=== PATIENT | male | born 1940 | race Caucasian/White ===

== ENCOUNTER 2024-12-09 06:56 | Day surgery (SDC) | payer MEDICARE ==
[2024-12-09] MEDS: IV FLUID CONTINUATION 1,000 ML IV ONE (07:39)
[2024-12-09 07:42] VITALS: RESP 18; TEMP 97.8
[2024-12-09] MEDS: LACTATED RINGERS 1,000 ML BAG IV STA (07:52)
[2024-12-09] MEDS ORDERED: PROPOFOL 10 MG/ML 20 ML VIAL IV ONE (08:01)
[2024-12-09 08:43] VITALS: BP 117/70; PULSE 83
[2024-12-09 08:46] LABS: Basophils # (A) 0.07 10*3/uL (0.00-0.10); Basophils % (A) 0.9 %; Eosinophils # (A) 0.23 10*3/uL (0.04-0.35); Eosinophils % (A) 3.0 %; HCT 26.4 % (39.6-50.0); HGB 8.8 g/dL (13.0-17.0); Lymphocytes # (A) 1.87 10*3/uL (0.90-5.00); Lymphocytes % (A) 24.2 %; MCH 30.9 pg (27.0-32.0); MCHC 33.3 g/dL (32.0-37.0); MCV 92.6 fL (80.0-97.0); Monocytes # (A) 0.62 10*3/uL (0.20-1.00); Monocytes % (A) 8.0 %; Neutrophils # (A) 4.92 10*3/uL (1.80-7.70); Neutrophils % (A) 63.6 %; Platelet Count 294 10*3/uL (140-440); RBC 2.85 10*6/uL (4.40-5.60); RDW 15.3 % (11.5-14.5); WBC 7.73 10*3/uL (4.50-10.00)
--- NOTE | 2024-12-09 14:56 | OP ---
OPERATIVE REPORT DATE OF SERVICE : PROCEDURE PERFORMED: Bone marrow biopsy with general and local sedation. DESCRIPTION OF PROCEDURE: After being placed in the left lateral decubitus position, the right posterior iliac spine followed by palpation of the iliac crest was performed. Mr. Cui was then administered general anesthesia. The right iliac crest was then sterilized with 3 swabs of Betadine and 3 swabs of alcohol, followed by placement of sterile drape. 10 mL of 1% lidocaine was then applied to the periosteum and subcutaneous tissue. 0.3 cm incision was then made into the subcutaneous tissue, followed by advancement of 4-inch Jamshidi needle through the periosteum to the bone marrow. Approximately 18 mL of aspirate was obtained. Initial attempt to obtain core sample was not successful. On the third attempt, a 0.7 cm core sample was obtained. This will be sent for morphology and flow cytometry, FISH and cytogenetics. Mr. Cui tolerated the procedure well without any complications and less than 1 mL of blood loss. He returned to the postoperative area in stable condition. PREOPERATIVE DIAGNOSIS: Monoclonal gammopathy. POSTOPERATIVE DIAGNOSIS: Monoclonal gammopathy. MMODL / IJN: [id number] /
== END 2024-12-09 09:11 | disposition home or self-care (01) ==
LOC: OR 06:56
PROVIDERS: ATTEND Internal Medicine
DX: D47.2 Monoclonal gammopathy (principal); E78.5 Hyperlipidemia, unspecified; M06.9 Rheumatoid arthritis, unspecified; J44.9 Chronic obstructive pulmonary disease, unspecified; N40.0 Benign prostatic hyperplasia without lower urinary tract symptoms; D64.9 Anemia, unspecified; K21.9 Gastro-esophageal reflux disease without esophagitis; F41.9 Anxiety disorder, unspecified; Z79.82 Long term (current) use of aspirin; Z79.631 Long term (current) use of antimetabolite agent; Z79.69 Long term (current) use of other immunomodulators and immunosuppressants; Z79.51 Long term (current) use of inhaled steroids; Z79.620 Long term (current) use of immunosuppressive biologic; Z79.899 Other long term (current) drug therapy; Z87.891 Personal history of nicotine dependence; Z88.2 Allergy status to sulfonamides
CPT/HCPCS: 85025; 85045; 38222; J2704